=== PATIENT | male | born 1940 | race Caucasian/White ===

== ENCOUNTER 2016-10-26 13:09 | Observation (INO) | payer OTHER, MEDICARE ==
--- NOTE | 2016-10-26 13:33 | PDOC ---
*Physical Exam - Vital Signs Last Vital Signs Temp Pulse Resp BP Pulse Ox 98.4 F 80 18 132/65 99 10/26/16 13:26 10/26/16 13:26 10/26/16 13:26 10/26/16 13:26 10/26/16 13:26 - Physical Exam Comments: 10/26/16 13:33 Pt seen by the Advanced Practice Provider under my direct supervision Pt interviewed and examined Ancillary studies reviewed I agree with plan as outlined by the Advanced Practice Provider ED Treatment Course - LABORATORY CBC & Chemistry Diagram: 10/26/16 15:31 10/26/16 15:30 *DC/Admit/Observation/Transfer Diagnosis at time of Disposition: Subdural hematoma, Fall, Head injury, On aspirin at home
[2016-10-26 13:41] VITALS: BMI 34.1
[2016-10-26] MEDS ORDERED: DIPHTH,PERTUSS(ACELL),TET VAC 0.5 ML VIAL IM ONE (14:01)
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
[2016-10-26 15:43] LABS: BASOPHIL 0.3 % (0-2.0); EOSINOPHIL 2.6 % (0-4.5); MCH 28.1 pg (25.7-33.7); MCHC 32.5 g/dl (32.0-35.9); MEAN CELL VOLUME 86.6 fl (80-96); MEAN PLT VOLUME 10.5 fl (7.5-11.1); NEUTROPHILS 70.4 % (42.8-82.8); PLATELET COUNT 172 K/MM3 (134-434); RDW 14.7 % (11.9-15.9); WHITE BLOOD COUNT 6.6 K/mm3 (4.0-10.0)
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
[2016-10-26 17:15] LABS: INR 1.11 (0.82-1.09); PROTHROMBIN TIME (PATIENT) 12.2 SEC (9.98-11.88)
[2016-10-26 17:25] LABS: ALBUMIN 3.9 g/dl (3.4-5.0); ANION GAP 9 (8-16); BILIRUBIN,TOTAL 0.5 mg/dL (0.2-1.0); CALCIUM 9.2 mg/dL (8.5-10.1); CO2 30 mmol/L (21-32); CREATININE 0.8 mg/dL (0.7-1.3); GLUCOSE,RANDOM 116 mg/dL (74-106); SGOT/AST 30 U/L (15-37); SGPT/ALT 24 U/L (12-78)
[2016-10-26 17:26] LABS: ALK PHOS 62 U/L (45-117)
[2016-10-26 17:33] LABS: URINE APPEARANCE CLEAR; URINE BILIRUBIN NEGATIVE (NEGATIVE); URINE BLOOD NEGATIVE (NEGATIVE); URINE COLOR YELLOW; URINE GLUCOSE (UA) NEGATIVE (NEGATIVE); URINE KETONE NEGATIVE (NEGATIVE); URINE LEUK ESTERASE NEGATIVE (NEGATIVE); URINE NITRITE NEGATIVE (NEGATIVE); URINE PROTEIN NEGATIVE (NEGATIVE); URINE UROBILINOGEN NEGATIVE E.U./dl (0.2-1.0)
[2016-10-26] MEDS ORDERED: ONDANSETRON 4 MG/2 ML VIAL IVPB PRN (18:00)
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
[2016-10-26] MEDS ORDERED: ROSUVASTATIN CA 10 MG TABLET (FP) PO SCH (22:00)
[2016-10-27] MEDS: CARBIDOPA/LEVODOPA 25/100 TABLET (FP) PO SCH ×3 (00:06→14:50)
[2016-10-27] MEDS: INSULIN SLIDING SCALE (NOVOLOG) 1 VIAL SQ SCH ×3 (00:11→12:39)
[2016-10-27] MEDS ORDERED: guaiFENesin 200 MG/10 ML 10 ML UNIT-DOSE CUPS PO ONE (01:09)
[2016-10-27 08:18] LABS: BASOPHIL 0.2 % (0-2.0); MCH 29.8 pg (25.7-33.7); MCHC 34.2 g/dl (32.0-35.9); MEAN CELL VOLUME 87.4 fl (80-96); MEAN PLT VOLUME 9.7 fl (7.5-11.1); PLATELET COUNT 164 K/MM3 (134-434); RDW 14.3 % (11.9-15.9); WHITE BLOOD COUNT 7.9 K/mm3 (4.0-10.0)
[2016-10-27] MEDS ORDERED: TAMSULOSIN HCL 0.4 MG CAP.ER.24H (FP) PO SCH (08:30)
[2016-10-27 08:31] LABS: INR 1.14 (0.82-1.09); PROTHROMBIN TIME (PATIENT) 12.6 SEC (9.98-11.88)
[2016-10-27 08:34] LABS: ACTIVATED PTT 31.2 SECONDS (26.9-34.4)
[2016-10-27 08:42] LABS: ALBUMIN 3.7 g/dl (3.4-5.0); ANION GAP 8 (8-16); CO2 28 mmol/L (21-32); GLUCOSE,RANDOM 107 mg/dL (74-106); SGOT/AST 23 U/L (15-37); SGPT/ALT 12 U/L (12-78)
[2016-10-27 08:45] LABS: ALK PHOS 57 U/L (45-117); BILIRUBIN,TOTAL 0.6 mg/dL (0.2-1.0); CREATININE 0.8 mg/dL (0.7-1.3); TOT PROT 6.5 g/dl (6.4-8.2)
[2016-10-27] MEDS ORDERED: FUROSEMIDE 40 MG TABLET (FP) PO SCH (10:00)
[2016-10-27] MEDS ORDERED: EPLERENONE 25 MG TABLET PO SCH (10:00)
[2016-10-27] MEDS ORDERED: FINASTERIDE 5 MG TABLET (FP) PO SCH (10:00)
[2016-10-27] MEDS ORDERED: VALSARTAN 160 MG TABLET (UD) PO SCH (10:00)
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
--- NOTE | 2016-10-27 12:45 | EKG ---
Test Reason : Blood Pressure : / mmHG Vent. Rate : 081 BPM Atrial Rate : 081 BPM P-R Int : 000 ms QRS Dur : 070 ms QT Int : 364 ms P-R-T Axes : 000 025 046 degrees QTc Int : 422 ms ATRIAL FIBRILLATION LOW VOLTAGE QRS CANNOT RULE OUT ANTERIOR INFARCT , AGE UNDETERMINED ABNORMAL ECG Confirmed by FRANCISCO WATSON MD ([id number]) on 10/27/2016 12:44:44 PM Referred By: Confirmed By:FRANCISCO WATSON MD
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
[2016-10-27] MEDS ORDERED: LEVOFLOXACIN 250 MG TABLET (FP) PO SCH (14:30)
[2016-10-27 15:34] VITALS: TEMP 97.6
[2016-10-27 16:07] VITALS: BP 150/80; PULSE 90
--- NOTE | 2016-10-27 17:00 | DS ---
Physical Examination Vital Signs: Vital Signs Temperature 97.6 F 10/27/16 14:32 Pulse Rate 92 H 10/27/16 14:32 Respiratory Rate 22 10/27/16 14:32 Blood Pressure 120/43 10/27/16 14:32 O2 Sat by Pulse Oximetry (%) 97 10/27/16 11:00 Findings/Remarks: Has no fever or chills , no abd pain or diarrhea , no dysuria . has no ROSENBERG , no change in vision, no weakness , numbness or tingling. No difficulty swallowing. Constitutional: Yes: Well Nourished, No Distress Eyes: Yes: Conjunctiva Clear HENT: Yes: Normocephalic Neck: Yes: Supple, Trachea Midline Cardiovascular: Yes: Regular Rate and Rhythm, S1, S2 Respiratory: Yes: Regular, CTA Bilaterally Gastrointestinal: Yes: Normal Bowel Sounds, Soft. No: Tenderness Extremities: Yes: Other (no edema or erythema) Edema: No Neurological: Yes: Alert, Other (R lid lag, symetric face , but when he smiles there is R facial droop. ( spoke to daughter who stated this is always how he lookd, chronic ) . EOMI, PERRLA . nl facial sensation . nl sensation over all body. knows he is in hospital , thinks his is alive .). No: Dysarthria ...Motor Strength: LUE (5/5), LLE (5/5), RUE (5/5), RLE (5/5) Labs: CBC, BMP 10/27/16 07:00 10/27/16 07:00 Discharge Summary Reason For Visit: SUBDURAL HEMATOMA,FALL,HEAD INJURY Current Active Problems Fall (Acute) Head injury (Acute) On aspirin at home (Acute) Subdural bleeding (Acute) Atrial fibrillation, chronic (Chronic) Hospital Course: 76 y./o man with h/o dementia , A fib, recurrent falls and other medical problems who presented after a fall while ambulating with a walker with his aid. at presentation to ER , CT scan of head showed Subdural hematoma with no mass effect. his neuro exam was non focal . he was not cooperative with smiling so R lower facial droop was not noticed ( as per conversation with Dr. Sifuentes ) . CT scan of head was repeated last night and bleeding was stable. HE was evaluated this am by me , with no focal findings other than R lower facial droop and R lid lag. I spoke to his daughter who stated he always had the R lower facial droop ( may be he had a stroke in past ) . d/w Dr. Sifuentes , REcs to hold ASA for at least 2 weeks . f/u with him and PCP. Risk of stroke was explained to daughter with holding ASA . SHe agreed . he was cont on his home meds . including the Abx that was prescribed by his PCP yesterday for bronchitis . of note , Cxray showed no infiltrate . of note , I called his pharmacy and confirmed his meds . Dispo : Dc home . seen by PT. services were arranged. F/u PCP and Dr. Sifuentes . Condition: Stable - Instructions Diet, Activity, Other Instructions: hold aspirin at least fro 2 weeks . Your doctor can decide when exactly you can resume it follow with Dr. Sifuentes in 1 week ( neuro surgerY ) follow with your PCP . Dr. Mann in 3-4 days take your antibiotics as prescribed by your PCP ( 10 days ) take regular diet with thin liquids . if cough , please change to [place] thick liquids Referrals: Ponce Sifuentes MD [Staff Physician] - 1 Week Disposition: VNS/HOME HEALTH CARE - Home Medications Comprehensive Discharge Medication List: Ambulatory Orders Finasteride 5 mg PO DAILY 11/30/15 Eplerenone 50 mg PO BID 12/02/15 Meloxicam 7.5 mg PO DAILY 12/02/15 Sertraline HCl [Zoloft -] 50 mg PO DAILY 12/02/15 Silodosin [Rapaflo] 8 mg PO DAILY 12/02/15 Carbidopa/Levodopa 25/100 [Sinemet 25/100 -] 1 each PO TID 10/26/16 Cefdinir [Omnicef -] 300 mg PO BID 10/26/16 Furosemide [Lasix] 40 mg PO DAILY 10/26/16 Olmesartan Medoxomil [Benicar -] 20 mg PO DAILY 10/26/16 Rosuvastatin Calcium [Crestor] 10 mg PO ASDIR 10/26/16 This patient is new to me today: Yes Date on this admission: 10/27/16 Emergency Visit: Yes ED Registration Date: 10/26/16 Care time: The patient presented to the Emergency Department on the above date and was hospitalized for further evaluation of their emergent condition. Critical Care patient: No - Discharge Referral Referred to [facility] Med P.C.: No
[2016-10-27] MEDS ORDERED: PATIENT'S OWN MEDICATION (NON-FORMULARY) (Cefdinir 300 MG) PO SCH (22:00)
[2016-11-03 00:06] LABS: INFLUENZA ANTIBODY TYPE A 1:16 (Neg:<1:8)
== END 2016-10-27 16:44 | disposition home health service (06) ==
LOC: JER 13:09 → JERBED 15:59 → J5S 20:21
PROVIDERS: ADMIT Internal Medicine; ATTEND Internal Medicine
DX: S06.5X0A Traumatic subdural hemorrhage without loss of consciousness, initial encounter (principal); W19.XXXA Unspecified fall, initial encounter; Y93.9 Activity, unspecified; Y92.89 Other specified places as the place of occurrence of the external cause; Y99.9 Unspecified external cause status; I10 Essential (primary) hypertension; E78.5 Hyperlipidemia, unspecified; E11.9 Type 2 diabetes mellitus without complications; I48.2 Chronic atrial fibrillation; N40.0 Benign prostatic hyperplasia without lower urinary tract symptoms; G20 Parkinson's disease; F02.80 Dementia in other diseases classified elsewhere, unspecified severity, without behavioral disturbance, psychotic disturbance, mood disturbance, and anxiety; Z85.038 Personal history of other malignant neoplasm of large intestine; M19.91 Primary osteoarthritis, unspecified site
CPT/HCPCS: 36415; 70450-TC; 71010-TC; 72125-TC; 80053; 81003; 85025; 85610; 85730; 86710; 86850; 86900; 86901; 87254; 87804; 93005; 93010; 97116-GP; 99285-25; G0378